=== PATIENT | female | born 1965 | race Caucasian/White ===

== ENCOUNTER 2021-05-01 18:05 | Outpatient (REF) | payer MEDICARE, MEDICAID, SELFPAY ==
[2021-05-01 20:00] LABS: Albumin 3.8 g/dL (3.4-5.0); Anion Gap 7.5 mmol/L (3-11); CO2 29.5 mmol/L (21.0-32.0); CREATININE 0.6 mg/dL (0.55-1.02); Calcium 9.2 mg/dL (8.5-10.1); Chloride 103 mmol/L (98-107); Glucose 77 mg/dL (74-106); Potassium 3.9 mmol/L (3.5-5.1); Sodium 140 mmol/L (136-145)
[2021-05-01 20:10] LABS: BUN 18 mg/dL (7-18)
[2021-05-01 20:25] LABS: Abs Immature Grans 0.02 10^3/uL (0.0-0.06); Absolute Basophil Count 0.02 10^3/uL (0.0-0.2); Absolute Eosinophil Count 0.13 10^3/uL (0.0-0.7); Absolute Lymphocyte Count 2.71 10^3/uL (1.2-3.4); Absolute Monocyte Count 0.69 10^3/uL (0.1-0.8); Absolute Neutrophil Count 4.87 10^3/uL (1.2-6.7); Basophils % 0.2; Eosinophils % 1.5; HCT 40.6 % (36.0-46.0); HGB 13.5 g/dL (11.2-15.7); Immature Grans % 0.2; Lymphocytes % 32.1; MCH 33.6 pg (27.0-33.0); MCHC 33.3 % (32.0-36.0); Monocytes % 8.2; Neutrophils % 57.8; Nucleated RBC 0 %; Platelet Count 292 10^3/uL (130-400); RBC 4.02 10^6/uL (3.93-5.22); RDW 12.4 % (11.7-14.6); RDW-SD 46.9 fL; WBC 8.44 10^3/uL (4.4-10.8)
[2021-05-01 20:40] LABS: Hemoglobin A1C 5.5 % (<5.7)
== END 2021-05-01 18:06 | disposition home or self-care (01) ==
LOC: LBN 18:05
PROVIDERS: PCP Physician Assistant; Visit Provider Orthopaedic Surgery
DX: M17.0 Bilateral primary osteoarthritis of knee (principal); Z01.812 Encounter for preprocedural laboratory examination; Z86.39 Personal history of other endocrine, nutritional and metabolic disease
CPT/HCPCS: 80048; 82040; 83036; 85025

== ENCOUNTER 2022-07-02 16:48 | Outpatient (REF) | payer MEDICARE, MEDICAID, SELFPAY ==
[2022-07-02 18:46] LABS: D-Dimer 429 ng/mlFEU (<500)
== END 2022-07-02 16:49 | disposition home or self-care (01) ==
LOC: NCHCN 16:48
PROVIDERS: PCP Physician Assistant; Visit Provider Family Medicine
DX: R07.89 Other chest pain (principal)
CPT/HCPCS: 85379

== ENCOUNTER 2023-11-25 09:49 | Outpatient (CLI) | payer MEDICARE, SELFPAY ==
--- NOTE | 2023-11-25 | DI.RAD_ITS ---
Exam(s) XR CERVICAL SPINE COMP 4-5V EXAM: XR CERVICAL SPINE COMP 4-5V CLINICAL HISTORY: Cervicalgia, M54.2; longstanding neck pain with stiffness, progressive,. TECHNIQUE: 2D digital imaging was performed. Five images were obtained. AP, odontoid, lateral and bi lateral oblique images were obtained. COMPARISON: No exams were available for comparison FINDINGS: The odontoid is intact. The lateral masses are well aligned. There is straightening of the normal ce rvical lordosis. 1-2 mm anterolisthesis of C4 on C5 is noted. There are endplate osteophytes and di sc space narrowing at C5-6 and C6-C7. Multilevel degenerative facet arthropathy is present. No acut e fracture or subluxation is present. There is narrowing of the neural foramen on the right at C5-6 a nd C6-C7. The cervical thoracic junction is well maintained. The prevertebral soft tissues are unrem arkable. Lung apices are clear. IMPRESSION: Moderate degenerative changes in the cervical spine particularly at C5-6 and C6-C7. DATA REPOSITORY: RADIATION DOSE DELIVERED:
[2023-11-25 09:41] LABS: Anion Gap 7.1 mmol/L (3-11); BUN 16 mg/dL (7-18); CO2 30.9 mmol/L (21.0-32.0); CREATININE 0.5 mg/dL (0.55-1.02); Calcium 9.4 mg/dL (8.5-10.1); Calculated LDL 87 mg/dL (<100); Chloride 105 mmol/L (98-107); Cholesterol 170 mg/dL (<200); Estimated GFR 107.98 (mL/min/1.73m2); Glucose 97 mg/dL (74-106); HDL Cholesterol 68 mg/dL (40-60); Potassium 3.9 mmol/L (3.5-5.1); Sodium 143 mmol/L (136-145); Triglyceride 79 mg/dL (<150); Vitamin B12 1635 pg/mL (193-986)
== END 2023-11-25 09:50 | disposition home or self-care (01) ==
PROVIDERS: PCP Physician Assistant; Visit Provider Physician Assistant
DX: I10 Essential (primary) hypertension (principal); M54.2 Cervicalgia
CPT/HCPCS: 36415; 80048; 80061; 72050; 82607